=== PATIENT | male | born 1990 | race Caucasian/White ===

== ENCOUNTER 2016-03-22 20:35 | Emergency (ER) | payer OTHER ==
[~2016-03-22] VITALS: Ht 180.3 cm; Wt 97.7 kg
[2016-03-22 20:44] VITALS: BP 137/80; PULSE 86; RESP 16; O2SAT 99
--- NOTE | 2016-03-22 22:05 | ED.REPORT ---
HPI-Hand Prob/Inj Date of Service Mar 22, 2016 ED Provider: Jose Barlow MD Patient is a 25 year old male who presents to the ED with a laceration to his left 2nd finger that he sustained this evening. He reports using a pair of scissors to open a container and accidentally cut himself. His bleeding is well controlled on arrival to the ED. The patient is right hand dominant. He denies any numbness or tingling of his finger. His last Tetanus immunization was in 2012. Nursing Notes Stated Complaint: LEFT HAND/FINGER LACERATION Chief Complaint: Laceration Nursing Notes Reviewed: Yes Allergies: Coded Allergies: No Known Allergies (Unverified , 03/22/16) General Time Seen by Provider: 22:06 Chief Complaint Finger injury left Hx Obtained From: Patient Arrived By: Walk-in Onset Occurred: Just prior to arrival Symptom Duration: Since onset Quality: Painful Severity: Current: Mild Severity: Maximum: Moderate Immunizations: Tetanus up to date Recent Healthcare: No recent doctor visit, No recent hospitalization Similar Sx Previous: No Past Medical History Past Medical History none reported Past Surgical History none reported Smoking History Unknown if Ever Smoker Social History Other Social History: Local resident Ambulatory Status Independent Review of Systems Musculoskeletal: Reports: Extremity pain, Denies: Extremity swelling Neurologic: Denies: Numbness, Weakness Complete sys rev & neg: except as marked. Hematologic: Reports Bleeding Physical Exam Initial Vital Signs Vital Signs (First) Date Time Temp Pulse Resp B/P Pulse Ox O2 Delivery O2 Flow Rate FiO2 03/22/16 20:44 37.1 86 16 137/80 99 Room Air Initial VS: Reviewed, Vital signs normal Head / Eyes: Atraumatic, Normocephalic, PERRL ENT: Conjunctiva normal, No scleral icterus Neck: Supple, Full range of motion Psychiatric: Mood/affect normal, Behavior normal, Normal thought content Wrist / Hand: Neurologic intact, Vascular intact 1cm transverse laceration to the flexor crease of the PIP joint of the left index finger General/Constitutional: Awake, Alert, No acute distress Skin: Warm, Dry Neurologic: Oriented X3, Speech NL, No motor deficits, No sensory deficits Respiratory / Chest: No respiratory distress Cardiovascular: Heart rate NL, Cap refill not delayed Procedures Laceration Management Time: 23:10 Procedure Performed by: ED physician Consent / Setup / Site Prep: Consent from patient, Time-out performed, Hand hygiene observed, Stand sterile technique Location of Wound: left index finger Wound Length: 1 cm Local Anesthesia: Other (LET) Wound Preparation: Shurclens Debridement: None Foreign Body Explore / Removal: Explored for foreign body Repair Skin: Nylon (5-0) # Sutures - Skin: 1 Closure Layers: 1 Suture Technique: Simple Post-Procedure / Complications: Antibiotic oint applied, Dressing applied, No complications, Condition improved, Tolerated procedure well, Patient stable Re-Eval/Medical Decision Med Decision/Clinical Course Suturable laceration of the nondominant index finger without neurovascular complication. Re-Evaluation/Progress : Time of Eval: 23:15 Patient Status: Condition improved Re-Evaluation/Progress Note: Laceration repaired. Patient understands and agrees with the plan to be discharged home. Discharge instructions and follow-up discussed. All questions were addressed. Return to the ED warnings given. Counseled Regarding: Diagnosis, Need for follow-up, When/why to return to ED Discharge & Departure Primary Impression: Laceration of left index finger Disposition: Home Discharge Condition All VS Reviewed: Yes Condition: Stable Patient Instructions: Finger Laceration (ED), Suture Care (ED) Additional Instructions: Wash this daily, but do not soak it. No hot, dishwashing, or scuba diving. Stitches out in 10 days. No work restrictions. Keep it covered with a Band- Aid. Referrals: [facility] JIGNESH (PCP) Adrianibmayte Attestation Portions of this note were transcribed by Taylor Ring. I, Dr. Barlow personally performed the history, physical exam and medical decision-making; I reviewed and confirmed the accuracy of the information in the transcribed note. Signed by: Florencio Astudillo, 03/22/2016 [id number] copies to: [facility] Jose Cabrera MD Mar 22, 2016 22:05 Taylor Ring Mar 22, 2016 22:14
[2016-03-22] MEDS ORDERED: Lidocaine-Epi-Tetracaine Solution 3 mL Syringe TOPICAL ONE (22:10)
[2016-03-22 23:44] VITALS: BP 128/82; RESP 16
== END 2016-03-22 23:45 | disposition home or self-care (01) ==
LOC: SED 20:35
DX: S61.211A Laceration without foreign body of left index finger without damage to nail, initial encounter (principal); W27.2XXA Contact with scissors, initial encounter; Y93.89 Activity, other specified; Y92.89 Other specified places as the place of occurrence of the external cause; Y99.8 Other external cause status